=== PATIENT | female | born 1990 | race Caucasian/White ===

== ENCOUNTER 2021-06-15 17:03 | Emergency (ER) | payer MEDICAID ==
[~2021-06-15] VITALS: Ht 160 cm; Wt 86.2 kg
[2021-06-15 17:08] VITALS: BP 124/69
--- NOTE | 2021-06-15 18:47 | NUR ---
[facility] EVALUATING PT
[2021-06-15] MEDS ORDERED: CEPH-588 PO (19:25)
[2021-06-15] MEDS ORDERED: CLOT14CR2 TP (19:25)
--- NOTE | 2021-06-15 19:32 | NUR ---
d/c with [facility]. d/c education given. opportunity to ask questions given and answered. rx of keflex and clomatrizole given.
[2021-06-15 19:33] VITALS: BP 132/66
== END 2021-06-15 19:34 | disposition home or self-care (01) ==
LOC: MED 17:03
DX: L98.8 Other specified disorders of the skin and subcutaneous tissue (principal); Z85.41 Personal history of malignant neoplasm of cervix uteri; Z79.2 Long term (current) use of antibiotics; Z79.899 Other long term (current) drug therapy
CPT/HCPCS: 99284

== ENCOUNTER 2022-04-30 23:18 | Emergency (ER) | payer MEDICAID ==
[~2022-04-30] VITALS: Ht 160 cm; Wt 86.2 kg
[~2022-04-30 23:18] MED LIST: CEPH-588 PO; CLOT14CR2 TP
[2022-04-30 23:40] VITALS: BP 121/64
--- NOTE | 2022-04-30 23:43 | NUR ---
TO LOBBY A/W BED AMBULATORY
--- NOTE | 2022-05-01 01:03 | NUR ---
PER RAD, PT HAS BEEN CALLED 3XS 30 MINS APART NO ANSWER. PT LWBS
== END 2022-05-01 01:03 | disposition left against medical advice (07) ==
LOC: MED 23:18
DX: R06.02 Shortness of breath (principal); Z53.21 Procedure and treatment not carried out due to patient leaving prior to being seen by health care provider
CPT/HCPCS: 99281